=== PATIENT | male | born 1950 | race Caucasian/White ===

== ENCOUNTER → 2019-08-07 09:48 | Outpatient (CLI) | payer MEDICARE, OTHER, SELFPAY ==
[2019-08-07 10:48] LABS: Add Manual Diff / Slide Review NO; Basophils Absolute Auto 100 /uL (0-100); Basophils Percent Auto 1.3 % (0-2); Eosinophils Absolute Auto 100 /uL (0-450); Eosinophils Percent Auto 1.7 % (2-4); Hematocrit 42.8 % (41-53); Hemoglobin 14.3 g/dL (13.5-17.5); Lymphocytes Absolute Auto 1700 /uL (1100-4500); Lymphocytes Percent Auto 29.6 % (25-40); Mean Corpuscular HGB Conc 33.5 % (30-36); Mean Corpuscular Hemoglobin 29.9 PG (26-34); Mean Corpuscular Volume 89.3 fL (80-100); Monocytes Absolute Auto 600 /uL (0-900); Monocytes Percent Auto 9.9 % (3-14); Neutrophils Absolute Auto 3300 /uL (1500-7000); Neutrophils Percent Auto 57.5 % (50-75); Platelet Count 275 X10^3/uL (150-400); Red Blood Cell Count 4.79 X10^6/uL (4.5-5.9); Red Cell Distribution Width 14.3 % (11.6-14.8); White Blood Cell Count 5.7 X10^3/uL (4.5-11.0)
[2019-08-07 11:08] LABS: Alanine Aminotransferase 21 IU/L (21-72); Albumin Globulin Ratio 1.5 (1.0-2.8); Alkaline Phosphatase 112 U/L (38-126); Aspartate Aminotransferase 33 IU/L (17-59); BUN Creatinine Ratio 22.7 (6-22); Bilirubin Total 0.6 mg/dL (0.2-1.3); Blood Urea Nitrogen 25 mg/dL (9-20); C-Reactive Protein Quant 0.5 mg/dL (<1.0); Carbon Dioxide 29 mmol/L (22-32); Chloride 103 mmol/L (98-107); Cholesterol 255 mg/dL (140-199); Estimated Glomerular Filt Rate > 60.0 mL/min (>60); Globulin 2.7 g/dL (1.7-4.1); Glucose 94 mg/dL (80-110); HDL Cholesterol 44 mg/dL (40-60); HEMOLYSIS < 15 (0-50); LDL Cholesterol Calculated 198 mg/dL (<100); Potassium 4.7 mmol/L (3.4-5.1); Sodium 140 mmol/L (137-145); Total Protein 6.7 g/dL (6.3-8.2); Triglycerides 66 mg/dL (35-150)
[2019-08-07 11:10] LABS: Erythrocyte Sedimentation Rate 7 MM/HR (0-15)
[2019-08-07 11:24] LABS: Rheumatoid Factor < 8.6 IU/mL (<12.0)
[2019-08-07 11:37] LABS: TSH w/ Reflex to FT4 0.95 uIU/mL (0.47-4.68)
[2019-08-10 10:19] LABS: ANA Screen, IFA NEGATIVE (NEGATIVE)
[2019-08-10 12:34] LABS: CCP Antibody (IgG) < 16 Units (< 20)
[2019-08-10 14:36] LABS: PSA Total 0.71 ng/mL (< 4.01)
== END ==
PROVIDERS: PCP Internal Medicine; Visit Provider Internal Medicine
DX: I10 Essential (primary) hypertension (principal); Z13.220 Encounter for screening for lipoid disorders; K22.719 Barrett's esophagus with dysplasia, unspecified; N40.1 Benign prostatic hyperplasia with lower urinary tract symptoms; R21 Rash and other nonspecific skin eruption; M25.50 Pain in unspecified joint
CPT/HCPCS: 36415; 80053; 80061; 84153; 84154; 84443; 85025; 85651; 86038; 86140; 86200; 86430

== ENCOUNTER → 2019-08-28 09:01 | Outpatient (CLI) | payer MEDICARE, OTHER, SELFPAY ==
--- NOTE | 2019-08-28 | DI.MRI.S_ITS ---
PROCEDURE: MR LUMBAR SPINE WO CON INDICATIONS: ATROPHY OF MUSCLE COMPRESSION FRACTURE TECHNIQUE: Noncontrast sagittal T1 spin echo and T2 fast echo, sagittal STIR, axial T1 and T2 fast spin echo through the lumbar spine. In cases with scoliosis, additional coronal T2 fast spin echo may be performed. COMPARISON: None. FINDINGS: Image quality: Excellent. Alignment and Curvature: There is levoconvex scoliotic curvature with apex at L3. There is trace retrolisthesis of L1 on L2, L2 on L3, grade 1 retrolisthesis of L3 on L4, trace retrolisthesis of L4 on L5. Bone Marrow: Marrow is of normal overall signal. Moderate reactive endplate changes are present L2-3. Old compression deformity is noted at L1. There is subacute compression deformity along the inferior endplate of L2. Spinal Cord: Conus medullaris terminates at the L2 level. Visualized cord demonstrates normal signal and size. Paraspinous Soft Tissues: No paravertebral masses. There is marked fatty infiltration of the paraspinous musculature particularly at the levels of L4, L5 and S1. Discs: Moderate to severe desiccation is present throughout the lumbar spine most severe at L2-3. L1-L2: Mild disc bulge without spinal stenosis. Minimal right foraminal narrowing with facet and ligamentum flavum hypertrophy. L2-L3: Mild disc bulge with superimposed protrusion in the right posterior paracentral location with compromise of the right lateral recess. There is overall minimal spinal stenosis. Mild to moderate bilateral foraminal narrowing is present with facet and ligamentum flavum hypertrophy. L3-L4: Mild disc bulge with mild spinal stenosis. Moderate to severe right and moderate left foraminal narrowing with facet and ligamentum flavum hypertrophy. Minimal epidural lipomatosis. L4-L5: Mild disc bulge with mild spinal stenosis. Severe left foraminal narrowing with facet and ligamentum flavum hypertrophy. L5-S1: Mild disc bulge without spinal stenosis. Mild left and minimal right foraminal narrowing with facet hypertrophy. IMPRESSION: 1. Multilevel degenerative changes are present including prominent levoconvex scoliotic curvature. 2. Multilevel foraminal narrowing overall mild and most prominent at L3-4 and L4-5. 3. Multilevel spinal stenosis severe at L4-5 secondary to retrolisthesis is also facet/ligamentum flavum arthropathy. 4. Paraspinous muscular fatty infiltration and atrophy as above. Dictated by: Stephanie Mukherjee M.D. on 08/28/2019 at 15:02 Approved by: Stephanie Mukherjee M.D. on 08/28/2019 at 15:08
== END ==
PROVIDERS: PCP Internal Medicine; Visit Provider Internal Medicine
DX: M62.562 Muscle wasting and atrophy, not elsewhere classified, left lower leg (principal); S32.010S Wedge compression fracture of first lumbar vertebra, sequela; M41.86 Other forms of scoliosis, lumbar region; M48.061 Spinal stenosis, lumbar region without neurogenic claudication; M85.852 Other specified disorders of bone density and structure, left thigh; Z87.891 Personal history of nicotine dependence
CPT/HCPCS: 72148; 77080

== ENCOUNTER → 2019-09-07 12:50 | Outpatient (CLI) | payer MEDICARE, MEDICAID, SELFPAY | PROVIDERS: PCP Internal Medicine; Visit Provider Internal Medicine | DX: M62.562 Muscle wasting and atrophy, not elsewhere classified, left lower leg (principal) | CPT/HCPCS: 95885; 95886; 95911 ==

== ENCOUNTER → 2019-10-27 13:51 | Outpatient (CLI) | payer MEDICARE, MEDICAID, SELFPAY ==
[2019-10-27 15:59] LABS: Vitamin B12 319 pg/mL (239-931)
[2019-10-31 06:53] LABS: Arsenic < 2 mcg/L (< 23); Lead, Blood 4 mcg/dL (< 5)
[2019-11-03 09:17] LABS: Mercury, Blood < 2
[2019-11-03 14:28] LABS: Albumin 3.9 g/dL (3.8-4.8); Alpha 1 Globulin 0.3 g/dL (0.2-0.3); Alpha 2 Globulin 0.6 g/dL (0.5-0.9); Beta 1 Globulin 0.4 g/dL (0.4-0.6); Gamma Globulin 0.6 g/dL (0.8-1.7); Protein, Total 6.1 g/dL (6.1-8.1)
== END ==
PROVIDERS: PCP Internal Medicine; Visit Provider Internal Medicine
DX: G62.9 Polyneuropathy, unspecified (principal)
CPT/HCPCS: 36415; 82607; 82784; 83825; 84155; 84165; 86334